=== PATIENT | male | born 1970 | race Caucasian/White ===

== ENCOUNTER → 2023-12-04 08:22 | Outpatient (REF) | payer OTHER, SELFPAY | LOC: HWRAD 08:22 | PROVIDERS: ATTENDING PHYSICIAN Family Medicine | DX: N50.89 Other specified disorders of the male genital organs (principal) | CPT/HCPCS: 76870; 93976 ==

== ENCOUNTER 2025-07-17 16:36 | Emergency (ER) | payer OTHER, SELFPAY ==
[2025-07-17 16:39] VITALS: BP 125/87
[2025-07-17 17:23] LABS: Hematocrit 41.3 % (39.0-52.0); Hemoglobin 14.2 g/dL (13.0-18.0); Mean Corp Hgb Conc. 34.4 g/dL (33.0-37.0); Mean Corpuscular Volume 83.6 fL (80.0-94.0); Nucleated Red Blood Cells % 0 % (-); Platelet Count 210 10^3/uL (130-400); Red Cell Dist. Width 12.5 % (11.5-14.5)
[2025-07-17 17:41] LABS: ALT (SGPT) 23 U/L (0-50); AST (SGOT) 23 U/L (17-59); Albumin 4.2 g/dl (3.5-5.0); Alkaline Phosphatase 75 U/L (38-126); Blood Urea Nitrogen 10 mg/dl (9-20); Calcium 8.8 mg/dl (8.4-10.2); Carbon Dioxide 21 mmol/L (22-30); Chloride 104 mmol/L (98-107); Glucose 119 mg/dl (70-99); INR 1.08; PT 14.3 Sec (11.4-14.6); Potassium 3.9 mmol/L (3.5-5.1); Sodium 133 mmol/L (135-145); Total Protein 6.8 g/dl (6.3-8.2); eGFR > 60.00
[2025-07-17 17:49] LABS: Urine Character Clear (Clear)
[2025-07-17 18:06] LABS: COVID-19 Antigen Negative (Negative)
[2025-07-17 18:08] LABS: Troponin I < 0.012 ng/ml
[2025-07-17 18:40] VITALS: BP 132/80
[2025-07-17 18:44] VITALS: BMI 26.5
[2025-07-17 18:46] VITALS: BP 132/80
[2025-07-17 19:42] LABS: Urine Red Blood Cell 0-2 /HPF (0-2); Urine Squamous Cell 0-2 /LPF (Few)
[2025-07-17 19:43] LABS: Urine White Cell 16-20 /HPF (0-5)
[2025-07-17 20:00] VITALS: BP 107/48
[2025-07-17 21:00] VITALS: BP 113/63
[2025-07-17 22:00] VITALS: BP 109/63
--- NOTE | 2025-07-17 23:11 | ED.GENMED ---
History of Present Illness
General
Chief Complaint: Bowel Problem
Source: patient
Exam Limitations: none
Time Seen by Provider: 07/17/25 20:04
Nursing documentation reviewed up to this point in time: agreed with
History of Present Illness
History of Present Illness:
see MDM
Past History
Past History
ED Past Medical History: None
ED Past Surgical History: Other (Hernia surgery)
Social History
Tobacco: Non-smoker
Alcohol: Occasional
Drug: None
Personal:
Living: with family
Employment: Employed
Family History
Family History: Other (Noncontributory)
Phy Exam
Physical Exam
Physical Exam:
GENERAL: Alert , in no apparent distress
EYE: pupils equal and reactive
NECK: Supple
ENT: o/p clr, mmm.
CARDIAC: Regular rate and rhythm .
LUNGS: Clear breath sounds bilaterally, no acute respiratory distress, no wheezes/rales/rhonchi
ABDOMEN: Soft, without focal tenderness, no r/g, no cvat, normal bowel sounds
gu: mild R scrotal swelling with moderate tenderness;
no scrotal eryhtheam
no masses palpated
epididymis is pretty tender
no hernia aprpecaited
mild RASHID inguinal
NEUROLOGICAL: Alert and oriented, no focal neuro deficits
SKIN: Warm and dry, skin intact.
MUSCULOSKELETAL: No edema, well perfused. neg marysol's sign
PSYCH: Normal and appropriate interaction.
Course
Orders/Labs/Results
Orders:
Orders
07/17/25 16:46
Electrocardiogram (*1) Urgent
Reason for Study: Shortness of Breath
EKG- Treatment ONCE
Scrotum US [US Scrotum] Urgent
Comment:
Reason For Exam: right testicular pain and swelling
07/17/25 17:02
COVID-19 Antigen Urgent
Source: Nasal Swab
Complete Blood Count/With Diff Urgent
Comprehensive Metabolic Panel Urgent
Prothrombin Time Urgent
Troponin I Urgent
Urinalysis Reflex To Culture Urgent
Date Specimen was Collected: 07/17/25
Time Specimen was Collected: 16:46
Urine Microscopic Reflex Cult Urgent
Influenza A+B Rapid Molecular Urgent
FRANK Source: Nasal Swab
Specimen Description:
Urine Culture Urgent
FRANK Source: U
Specimen Description:
Date Specimen was Collected: 07/17/25
Time Specimen was Collected: 16:46
07/17/25 20:34
CT Pe/abd/pel W Urgent
Reason For Exam: recent travel, sob, constipation, trouble urinating
07/17/25 23:42
Bladder Scan- Treatment ONCE
Abnormal Lab Results
07/17/25
17:02
WBC 11.7 H 10^3/uL
(4.8-10.8)
MPV 11.7 H fL
(7.4-10.4)
Absolute Neuts (auto) 7.9 H 10^3/uL
(1.4-6.5)
Absolute Monos (auto) 1.2 H 10^3/uL
(0.1-0.6)
Monocytes % 10.1 H %
(1.7-9.3)
Sodium 133 L mmol/L
(135-145)
Carbon Dioxide 21 L mmol/L
(22-30)
Glucose 119 H mg/dl
(70-99)
Urine Ketones 3+ A
(Negative)
Ur Occult Blood Reflex 3+ A
(Negative)
Urine Urobilinogen 2+ A
(Neg - 1+)
Leukocyte Esterase Rfl 2+ A
(Negative)
Urine WBC (Reflex) 16-20 A /HPF
(0-5)
Urine Albumin (Reflex) 2+ A
(Neg - Trace)
07/17/25 17:02
07/17/25 17:02
Vital Signs
Initial and Last Documented VS:
Initial Vital Signs
Temp Pulse Resp BP Pulse Ox
37.7 C 91 18 125/87 98
07/17/25 16:39 07/17/25 16:39 07/17/25 16:39 07/17/25 16:39 07/17/25 16:39
Last Documented Vital Signs
Temp Pulse Resp BP Pulse Ox
37.6 C 85 18 109/63 94
07/17/25 18:46 07/17/25 20:24 07/17/25 20:24 07/17/25 22:00 07/17/25 23:12
MDM/Problems Addressed
Differential Diagnosis Includes:
see MDM
MDM/Problems Addressed:
Note:
CHIEF COMPLAINT(S)
- Reduced urinary flow
- Constipation
- Testicular swelling and pain
- Shortness of breath
HISTORY OF PRESENT ILLNESS
The patient is a 55 y/o -year-old male who is presenting with several symptoms following a recent trip from [place]. Approximately two weeks ago, the patient traveled on an overnight flight to [place]. Upon arrival, he initially felt well but noticed
some gastrointestinal disturbances leading to self-medication with [id number] antacid tablets.
then he developed some constipation which was unusual. Around the same time, he reported a diminished appetite and proceeded to self-medicate with prune juice and a laxative, which provided relief.
about 5-6 days ago he noticedhe had dec urinary stream and R sided testicular pain and swelling. ,
Historically, the patient has undergone surgical treatment for two sports hernias and reports a chronic presence of fatty tissue in the scrotal region, which had previously been deemed benign. No recent fever or chills, dysuria, hematuria, penile
discharge, rectal pain
he has had some mild sob since all of this began which he attributed to being away and not feeling wel.
The patient denies any recent exposure to sexually transmitted diseases, reporting monogamous sexual activity. Medical history reveals that he started taking the medication Jardiance shortly before his trip, prescribed due to his pre-diabetic
status, which may have exacerbated his gastrointestinal symptoms. Despite being tender, the patient has declined analgesics for pain management.
PAST MEDICAL AND SURGICAL HISTORY
- History of two sports hernias with surgical repair.
- Past surgery for penile curvature correction.
CHRONIC MEDICAL CONDITIONS SIGNIFICANTLY AFFECTING CARE
- Pre-diabetes.
SOCIAL HISTORY
- Patient is in a monogamous relationship and reports no recent exposure to sexually transmitted diseases.
REVIEW OF SYSTEMS
- Gastrointestinal: Constipation since last Thursday, relieved minimally by the use of a laxative. Decreased appetite since onset.
- Genitourinary: Reduced urinary stream, reluctance to fully empty bladder, persistent testicular swelling and tenderness.
- Respiratory: Experiencing mild breathlessness, particularly with exertion. No associated chest pain.
- Neurological: Reports persistent headaches concurrent with other symptoms, potentially attributed to fatigue and jet lag.
PHYSICAL EXAM
- Nursing notes reviewed and vital signs assessed.
GENERAL: Alert , in no apparent distress
EYE: pupils equal and reactive
NECK: Supple
ENT: o/p clr, mmm.
CARDIAC: Regular rate and rhythm .no edema, no murmur
LUNGS: Clear breath sounds bilaterally, no acute respiratory distress, no wheezes/rales/rhonchi
ABDOMEN: Soft, without focal tenderness, no r/g, no cvat, normal bowel sounds
: moderate R scrotal tenderness with testicular tendenress and epidydimis tenderness; no erythema
mild RASHID b/l inguinal nontender
NEUROLOGICAL: Alert and oriented, no focal neuro deficits
SKIN: Warm and dry, skin intact.
MUSCULOSKELETAL: No edema, well perfused. neg marysol's sign
PSYCH: Normal and appropriate interaction.
PROBLEM LIST
- Acute:
- Suspected Epididymitis or Prostatitis
- Urinary retention symptoms
- Chronic:
- Pre-diabetes
PLAN
- Order scrotal ultrasound to assess for hernia, epididymitis, or impaired testicular circulation.
- Consider a computed tomography scan of the abdomen to evaluate for gastrointestinal obstruction.
- Administer intravenous contrast for imaging if needed.
- Discuss the patient�s recent initiation of Jardiance and potential side effects related to current symptoms.
DIFFERENTIAL DIAGNOSIS
The Differential Diagnosis includes, in no particular order and is not limited to:
1. Epididymitis
2. Prostatitis
3. Testicular torsion
4. Inguinal hernia
5. Urinary tract infection
6. Constipation-related urinary symptoms
7. Medication-related side effects (Jardiance)
8. Viral infection causing systemic symptoms
9. Renal calculus obstructing urinary flow
10. Benign prostatic hyperplasia
55 y/o M
h/o newly treated BORDERLINE dm with jardiance
here with multiple complaints after traveling to and from [place] 2 weeks ago and returned 2 day sagto
started with constipation, relieved with laxative, some mild appetite issues, fatigue, not feeling well, mild SOB, not realy exertional, no cp
then with dec urinary stream and R testicular pains/welling
sex actie iwht only
no fever here
nontoxic appearing
no tachycardia, not hypoxic but recent long travle and EKG showing t wave inv inf/laterally which is new from old 2014 though
no more recent EKG
pt has tendnerness to R testicule suspicious for epididymitis which was confirmed on US
but with his urianry issues and sob with ekg kristel, i did scan pt's chest/abd/pelvis
findings are small liver lesions that need outpatient US nonurgently
small iinguinal hernia
no bowel obstruction
mild prostate enlargement
trop neg, wbc 11.7
ua positive
will treat with levaquin
bladder scan PVR 95 ML
D/C HOME
d/w dr. herrera who agreed
*Pulse Oximetry
SaO2: 94
Oxygen Mode of Delivery: Room air
Patient hypoxic: no (98)
*Critical Care Note
Total Time (30-74mins, 75-104mins- exclusive of procedures): Not Applicable
ED Attending Note
-
Portions of this chart may have been created with voice recognition software.� Occasional wrong word or��sound alike� substitutions may have occurred due to the inherent limitations of voice recognition software.
Discharge Plan
Departure
Patient Disposition: Home (Routine Discharge)
Date of Disposition: 07/18/25
Time of Disposition: 00:01
Patient with high blood pressure during this ER visit?: No
Condition: Fair
Covid-19: Not Applicable
Discharge Problem:
Abnormal EKG, Acute epididymitis
Instructions: Epididymitis and orchitis
Prescriptions:
New
levofloxacin 500 mg tablet
500 mg PO DAILY Qty: 7 0RF
Referrals:
Perry Wilkins MD [Active, Urology] - Follow up in 1 week
Carlos Corcoran MD [Active, Cardiology] - Follow up in 5-7 days
Ta Elliott MD [Family Provider, Family Practice]
Activity Restrictions/Additional Instructions:
YOUR SCROTAL SWELLING AND PAIN AND URINARY SYMPTOMS ARE DUE TO EPIDIDYMITIS
TAKE LEVAQUIN ONCE A DAY FOR 7 DAYS
WHILE ONT HIS MEDICATION, AVOID EXERCISING (IT CAN CAUSE TENDONS TO BECOME TIGHT AND POTENTIALLY RUPTURE IF YOU LIFT HEAVY WEIGHTS OR RUN)
DRIK FLUIDS
YOU SHOULD SEE UROLOGIST FOLLOW UP
WEAR TIGHT FITTING UNDERWEAR FOR SCROTAL SUPPORT
YOUR SHORTNESS OF BREATH IS NOT CAUSED BY OBVIOUS EMERGENCY, THERE WAS NO SIGN OF HEART ATTACK IN YOUR BLOOD WORK OR BLOOD CLOT IN LUNGS
BUT YOU SHOULD SEE CARPENTER PROTOTYPE, YOUR EKG IS CHANGED FROM OLD ONE
RETURN FOR CHEST PAIN, EXERTIOANL SHORTNESS OF BREATH, PASSING OUT, SCROTAL PAIN THAT IS WORSE, WORSE SWELLING, FEVER, VOMITING ETC
FOR YOUR CONSTIPATION YOU CAN TRY OTC MIRALAX ONCE OR TWICE A DAY FOR 2-3 DAYS
Interventions
Interventions:
*Risk Screen - Suicide Last Done: 07/17/25 16:39
*General Assessment Last Done: 07/17/25 16:39
*Neglect/Abuse Screening Last Done: 07/17/25 16:39
*ED- Fall Risk Assessment Last Done: 07/17/25 18:46
*ED COVID-19 Vaccine History Last Done: 07/17/25 18:46
BG-Uqbbis-Bsytmsgdtg Assessment Last Done: 07/17/25 18:46
Discharge Date and Time
Print Language: SUDANESE
[2025-07-18] VITALS: BP 132/81
[2025-07-18] MEDS: LEVAQUIN 500 MG PO (00:32)
== END 2025-07-18 00:30 | disposition home or self-care (01) ==
LOC: EMR 16:36
PROVIDERS: Emergency Medicine; EMERGENCY PHYSICIAN Emergency Medicine; FAMILY PHYSICIAN Family Medicine
DX: N45.1 Epididymitis (principal); R94.31 Abnormal electrocardiogram [ECG] [EKG]; R06.02 Shortness of breath; R39.198 Other difficulties with micturition; Z11.52 Encounter for screening for COVID-19
CPT/HCPCS: 99284; 71275; 74177; 76870; 80053; 81003; 81015; 84484; 85025; 85610; 87086; 87502; 87811; 93005; 93976; Q9967